=== PATIENT | female | born 1970 | race Caucasian/White ===

== ENCOUNTER 2017-12-21 16:58 | Emergency (ER) | payer BC ==
[2017-12-21 18:05] VITALS: BP 134/70
[2017-12-21] MEDS ORDERED: Ibuprofen TAB* 600 MG PO ONE (18:34)
--- NOTE | 2017-12-21 18:46 | ED ---
Adult Trauma - HPI Summary HPI Summary: 47 yr old female with the complaint of lower cervical spine pain, and also upper tspine pain. The patient reports she fell when moving furniture a couple of weeks ago against the corner of a wall. She has moderate pain. No numbness or tingling or weakness in the arms or legs. No bowel or bladder incontinence. - History of Current Complaint Chief Complaint: UCBackPain Stated Complaint: NECK PAIN Time Seen by Provider: 12/21/17 18:08 Hx Last Menstrual Period: 1 yr+ Pain Intensity: 6 - Allergy/Home Medications Allergies/Adverse Reactions: Allergies Allergy/AdvReac Type Severity Reaction Status Date / Time erythromycin base AdvReac Nausea And Verified 12/21/17 18:07 Vomiting Home Medications: Home Medications Naproxen Sodium [Aleve] 440 mg PO BID PRN 12/21/17 [History Confirmed 12/21/17] PMH/Surg Hx/FS Hx/Imm Hx Infectious Disease History: No Infectious Disease History: Denies: Traveled Outside the [place] in Last 30 Days - Family History Known Family History: Positive: Hypertension - Social History Occupation: Employed Full-time Alcohol Use: Occasionally Substance Use Type: Reports: None Smoking Status (MU): Light Every Day Tobacco Smoker Type: Cigarettes Amount Used/How Often: 1/2 PPD Have You Smoked in the Last Year: Yes Review of Systems Constitutional: Negative Eyes: Negative Positive: Other - c and t spine pain All Other Systems Reviewed And Are Negative: Yes Physical Exam Triage Information Reviewed: Yes Vital Signs On Initial Exam: Initial Vitals Temp Pulse Resp BP Pulse Ox 98.2 F 64 18 134/70 100 12/21/17 17:55 12/21/17 17:55 12/21/17 17:55 12/21/17 17:55 12/21/17 17:55 Vital Signs Reviewed: Yes Appearance: Positive: Well-Appearing, No Pain Distress Skin: Positive: Warm, Skin Color Reflects Adequate Perfusion Head/Face: Positive: Normal Head/Face Inspection Eyes: Positive: EOMI, CARRIE ENT: Positive: Normal ENT inspection Neck: Positive: Tenderness @ - about C5-7 and down to about t 3/4 Respiratory/Lung Sounds: Positive: Clear to Auscultation, Breath Sounds Present Cardiovascular: Positive: RRR. Negative: Murmur Abdomen Description: Positive: Nontender. Negative: Distended Musculoskeletal: Positive: Strength/ROM Intact Neurological: Positive: Sensory/Motor Intact, Alert, Oriented to Person Place, Time, CN Intact II-III, Normal Gait, Speech Normal - Pascale Coma Scale Best Eye Response: 4 - Spontaneous Best Motor Response: 6 - Obeys Commands Best Verbal Response: 5 - Oriented Coma Scale Total: 15 Diagnostics - Vital Signs Vital Signs Temp Pulse Resp BP Pulse Ox 12/21/17 17:55 98.2 F 64 18 134/70 100 - Laboratory Lab Statement: Any lab studies that have been ordered have been reviewed, and results considered in the medical decision making process. - Radiology CT Cervical thoracic spine Xray Interpretation: No Acute Changes Radiology Interpretation Completed By: Radiologist - [facility] Adult Trauma Course/Dx - Course Course Of Treatment: [address] neck and thoracic spine neg for fracutre. DC home. - Diagnoses Provider Diagnoses: Cervical strain, acute, Back pain Discharge - Sign-Out/Discharge Documenting (check all that apply): Patient Departure All imaging exams completed and their final reports reviewed: Yes - Discharge Plan Condition: Good Disposition: HOME Prescriptions: Ibuprofen TAB* [Motrin TAB* 600 MG] 600 mg PO Q8H PRN #14 tab PRN Reason: Pain Patient Education Materials: Cervical Strain (ED), Back Pain (ED) Referrals: Shreya Benites MD [Primary Care Provider] - 2 Days - Billing Disposition and Condition Condition: GOOD Disposition: Home
--- NOTE | 2017-12-21 19:11 | RAD ---
EXAM: CT Cervical Spine Without Intravenous Contrast CLINICAL HISTORY: 47 years old, female; Pain and injury or trauma; Fall; Initial encounter; Blunt trauma; Neck pain; Injury date: 12/21/17; Patient HX: Pt fell backwards x 2 days ago; Additional info: Neck trauma TECHNIQUE: Axial computed tomography images of the cervical spine without intravenous contrast. All CT scans at this facility use at least one of these dose optimization techniques: automated exposure control; mA and/or kV adjustment per patient size (includes targeted exams where dose is matched to clinical indication); or iterative reconstruction. Coronal and sagittal reformatted images were created and reviewed. COMPARISON: No relevant prior studies available. FINDINGS: Vertebrae: Vertebral body heights are maintained. No locked or perched facets. Multilevel facet arthropathy. No acute fracture. The dens is intact. Atlantoaxial intervals are normal. Discs/spinal canal/neural foramina: Multilevel degenerative changes with intervertebral disc height loss and osteophyte formation. No spinal canal stenosis. Soft tissues: Unremarkable. Lung apices: Unremarkable as visualized. IMPRESSION: No acute cervical spine fracture.
--- NOTE | 2017-12-21 19:13 | RAD ---
EXAM: CT Thoracic Spine Without Intravenous Contrast CLINICAL HISTORY: 47 years old, female; Pain and injury or trauma; Fall; Initial encounter; Blunt trauma (contusions or hematomas); Pain in thoracic spine; Without myelpathy or radiculopathy; Injury date: 12/21/17; Additional info: Pain upper t spine about level t 3/4 and into neck TECHNIQUE: Axial computed tomography images of the thoracic spine without intravenous contrast. All CT scans at this facility use at least one of these dose optimization techniques: automated exposure control; mA and/or kV adjustment per patient size (includes targeted exams where dose is matched to clinical indication); or iterative reconstruction. Coronal and sagittal reformatted images were created and reviewed. COMPARISON: No relevant prior studies available. FINDINGS: Vertebrae: Vertebral body heights are maintained. Multilevel facet arthropathy. Spinous processes are intact. No acute fracture. Discs/spinal canal/neural foramina: Multilevel degenerative changes with intervertebral disc height loss and osteophyte formation. No significant canal narrowing. Soft tissues: Unremarkable. Lungs: Mild right apical lung scarring. IMPRESSION: No acute fracture.
== END 2017-12-21 19:50 | disposition home or self-care (01) ==
LOC: UCCORT 16:58
DX: S16.1XXA Strain of muscle, fascia and tendon at neck level, initial encounter (principal); M54.9 Dorsalgia, unspecified; W19.XXXA Unspecified fall, initial encounter; Y93.89 Activity, other specified; Y92.9 Unspecified place or not applicable; Z88.1 Allergy status to other antibiotic agents; F17.210 Nicotine dependence, cigarettes, uncomplicated
CPT/HCPCS: 72125; 72128; 99212; A9270-GY; G0463

== ENCOUNTER 2017-12-23 16:23 | Emergency (ER) | payer BC ==
[2017-12-23 19:13] VITALS: BP 109/63
--- NOTE | 2017-12-23 19:13 | UC ---
Neck Pain HPI - HPI Summary HPI Summary: 47 YO FEMALE comes in to clinic today with a chief complaint of neck pain. Pain started 2 weeks ago after moving furniture. The pain is in the lower neck upper thoracic area. There is no radiation of pain or numbness or weakness in the arms or legs. No chest pain or shortness of breath. Patient was seen here recently with a CT of her thoracic and cervical spine which showed degenerative changes. She's been taking ibuprofen however the pain is worsening and the muscles around the neck and upper back are now in spasm. - History of Current Complaint Stated Complaint: NECK SPASMS Time Seen by Provider: 12/23/17 19:04 Hx Last Menstrual Period: 1 yr+ - Allergies/Home Medications Allergies/Adverse Reactions: Allergies Allergy/AdvReac Type Severity Reaction Status Date / Time erythromycin base AdvReac Nausea And Verified 12/23/17 19:13 Vomiting PMH/Surg Hx/FS Hx/Imm Hx Previously Healthy: Yes - Surgical History Surgical History: None - Family History Known Family History: Positive: Cardiac Disease, Hypertension, Seizure Disorder - Social History Alcohol Use: Occasionally Substance Use Type: None Smoking Status (MU): Light Every Day Tobacco Smoker Type: Cigarettes Amount Used/How Often: 1/2 PPD Have You Smoked in the Last Year: Yes Household Exposure Type: Cigarettes Review Of Systems Constitutional: Positive: Negative Skin: Positive: Negative Eyes: Positive: Negative ENT: Positive: Negative Respiratory: Positive: Negative Cardiovascular: Positive: Negative Gastrointestinal: Positive: Negative Genitourinary: Positive: Negative Musculoskeletal: Positive: Other: - SEE HPI Neurological: Negative: Headache, Weakness, Paresthesia, Numbness Psychological: Positive: Negative All Other Systems Reviewed And Are Negative: Yes Physical Exam Triage Information Reviewed: Yes Appearance: Well-Appearing, Pain Distress - MILD Vital Signs Reviewed: Yes Eye Exam: Normal ENT Exam: Normal Neck: Positive: Tenderness @ - Tender to palpation lower neck. The paraspinous muscles of the upper thoracic area are hard to palpation and in spasm. Respiratory Exam: Normal Respiratory: Positive: Lungs clear, Normal breath sounds, No respiratory distress Cardiovascular: Positive: RRR Musculoskeletal: Positive: Strength Intact, ROM Intact Neurological Exam: Normal Neurological: Positive: Alert, Muscle Tone Normal Psychological Exam: Normal Skin Exam: Normal Neck Pain Course/Dx - Course Course Of Treatment: We discussed the prior CT scans. I will prescribe tramadol and Flexeril and she can follow up with the primary medical doctor. There is no neurologic deficits. Recheck sooner if worse. - Differential Dx/Diagnosis Provider Diagnoses: NECK/THORACIC BACK PAIN Discharge - Sign-Out/Discharge Documenting (check all that apply): Patient Departure All imaging exams completed and their final reports reviewed: No Studies - Discharge Plan Condition: Stable Disposition: HOME Prescriptions: Cyclobenzaprine TAB* [Flexeril 10 MG TAB*] 10 mg PO TID PRN #15 tab MDD 3 PRN Reason: Pain traMADol TAB* [Ultram*] 50 mg PO Q6HR PRN #20 tab MDD 4 PRN Reason: Pain Patient Education Materials: Neck Pain (ED) Referrals: Shreya Benites MD [Primary Care Provider] - Additional Instructions: FOLLOW UP WITH YOUR DOCTOR. GET RECHECKED FOR ANY WORSENING OF YOUR CONDITION; WEAKNESS, NUMBNESS, PAIN OR QUESTIONS OR CONCERNS. - Billing Disposition and Condition Condition: STABLE Disposition: Home - Attestation Statements Document Initiated by Scribe: No
== END 2017-12-23 19:17 | disposition home or self-care (01) ==
LOC: UCCORT 16:23
DX: M54.2 Cervicalgia (principal); M54.6 Pain in thoracic spine; F17.210 Nicotine dependence, cigarettes, uncomplicated; Z88.1 Allergy status to other antibiotic agents
CPT/HCPCS: 99212; G0463

== ENCOUNTER 2019-06-29 16:15 | Emergency (ER) | payer SELFPAY ==
[2019-06-29 16:30] VITALS: BP 111/69
--- NOTE | 2019-06-29 16:57 | UC ---
Hand/Wrist HPI - HPI Summary HPI Summary: Pt presents with c/o left hand and wrist pain and swelling after she fell while walking at work today at ~1200 and fell with hand outstretched. Pt medial side of left hand has bruising, swelling, and abrasions. - History Of Current Complaint Chief Complaint: UCUpperExtremity Stated Complaint: WC LEFT WRIST/HAND INJURY Time Seen by Provider: 06/29/19 16:42 Hx Obtained From: Patient Hx Last Menstrual Period: 1 yr+ ?: No Onset/Duration: Sudden Onset, Still Present Severity Initially: Moderate Severity Currently: Moderate Pain Intensity: 5 Character Of Pain: Dull Aggravating Factor(s): Movement Alleviating Factor(s): Rest Associated Signs And Symptoms: Positive: Swelling, Bruising Related History: Dominant Hand Right - Risk Factors Compartment Syndrome Risk Factors: Pain - Allergies/Home Medications Allergies/Adverse Reactions: Allergies Allergy/AdvReac Type Severity Reaction Status Date / Time erythromycin base AdvReac Nausea And Verified 06/29/19 16:26 Vomiting Home Medications: Home Medications Aspirin/Acetaminophen/Caffeine [Excedrin Extra Strength Caplet] 2 tab PO ONCE [History Confirmed 06/29/19] PMH/Surg Hx/FS Hx/Imm Hx Previously Healthy: Yes - Surgical History Surgical History: None - Family History Known Family History: Positive: Cardiac Disease, Hypertension, Seizure Disorder - Social History Occupation: Employed Full-time Lives: With Family Alcohol Use: Rare Substance Use Type: None Smoking Status (MU): Light Every Day Tobacco Smoker Type: Cigarettes Amount Used/How Often: 1/2 PPD Have You Smoked in the Last Year: Yes Household Exposure Type: Cigarettes Review of Systems All Other Systems Reviewed And Are Negative: Yes Constitutional: Positive: Negative Skin: Positive: Bruising, Other - left hand medial aspect Eyes: Positive: Negative ENT: Positive: Negative Respiratory: Positive: Negative Cardiovascular: Positive: Negative Gastrointestinal: Positive: Negative Genitourinary: Positive: Negative Motor: Positive: Decreased ROM - pain with ROM left hand Neurovascular: Positive: Negative Musculoskeletal: Positive: Decreased ROM, Edema, Myalgia, Other: - bruising Neurological/Mental Status: Positive: Negative Psychological: Positive: Negative Is Patient Immunocompromised?: No Physical Exam Triage Information Reviewed: Yes Appearance: Well-Appearing Vital Signs: Initial Vital Signs Temp 98.9 F 06/29/19 16:27 Pulse 64 06/29/19 16:27 Resp 15 06/29/19 16:27 BP 111/69 06/29/19 16:27 Pulse Ox 100 06/29/19 16:27 Vital Signs Reviewed: Yes Eye Exam: Normal ENT: Positive: Hearing grossly normal Dental Exam: Normal Neck exam: Normal Respiratory: Positive: No respiratory distress Musculoskeletal: Positive: ROM Limited @ - pain with ROM left hand, Edema @ - mild swelling left medial aspect of hand Neurological Exam: Normal Psychological Exam: Normal Skin Exam: Other - bruising left hand medial aspec to palm of hand, cattered abarsion on left medial aspect of palm Diagnostics - Radiology No standard instances Radiology Interpretation Completed By: Radiologist - negative for fracture negative ulnar variance Hand/Wrist Course/Dx - Differential Dx/Diagnosis Differential Diagnosis/HQI/PQRI: Contusion, Fracture Provider Diagnosis: Contusion of hand, left, Wrist pain, left Discharge ED - Sign-Out/Discharge Documenting (check all that apply): Patient Departure All imaging exams completed and their final reports reviewed: Yes - Discharge Plan Condition: Stable Disposition: HOME Patient Education Materials: Contusion in Adults (ED), Hand Sprain (ED) Referrals: Ilir Gomes MD [Medical Doctor] - Shreya Benites MD [Primary Care Provider] - If Needed - Billing Disposition and Condition Condition: STABLE Disposition: Home - Attestation Statements Provider Attestation: This patient was not seen by me. I was available for consult. Chart reviewed. SUPA
== END 2019-06-29 17:32 | disposition home or self-care (01) ==
LOC: UCCORT 16:15
DX: S60.222A Contusion of left hand, initial encounter (principal); M25.532 Pain in left wrist; W18.30XA Fall on same level, unspecified, initial encounter; Y93.01 Activity, walking, marching and hiking; Y92.9 Unspecified place or not applicable; Y99.0 Civilian activity done for income or pay; Z88.1 Allergy status to other antibiotic agents; F17.210 Nicotine dependence, cigarettes, uncomplicated
CPT/HCPCS: 99212; G0463